=== PATIENT | female | born 1985 | race Caucasian/White ===

== ENCOUNTER 2018-04-18 18:05 | Outpatient (CLI) | payer OTHER ==
[2018-04-18 18:51] VITALS: BP 99/57
== END 2018-04-18 19:00 | disposition home or self-care (01) ==
LOC: TRG 18:05
PROVIDERS: ATTEND Obstetrics & Gynecology
DX: O47.1 False labor at or after 37 completed weeks of gestation (principal); Z3A.38 38 weeks gestation of pregnancy
CPT/HCPCS: 59025

== ENCOUNTER 2018-04-26 15:32 | Inpatient (IN) | payer OTHER ==
[2018-04-26] MEDS ORDERED: SUBLIMAZE IV ONE (17:00)
[2018-04-26] MEDS ORDERED: LACTATED RINGERS 1,000 ML IV SCH ×2 (17:00→19:00)
[2018-04-26 17:20] LABS: Hemoglobin 12.1 gm/dl (10.1-14.3); Mean Corpuscular HGB Conc 33 % (30-34); Mean Corpuscular Hemoglobin 27 pg (28-32); Mean Corpuscular Volume 82 fl (79-97); Platelet Count 222 K/mm3 (140-440); Red Blood Count 4.52 M/mm3 (3.65-5.03); Red Cell Distribution Width 19.2 % (13.2-15.2)
[2018-04-26] MEDS ORDERED: PITOCin/NS 20 UNIT/1000ML DRIP 20 UNITS/1,000 ML BAG IV SCH ×2 (18:00→19:00)
[2018-04-26] MEDS ORDERED: XYLOCAINE 2% INFILTRATI ONE (18:29)
[2018-04-26] MEDS ORDERED: BRETHINE SUB-Q PRN (18:29)
[2018-04-26] MEDS ORDERED: ePHEDrine SULFATE IV PRN (18:29)
--- NOTE | 2018-04-26 18:37 | History and Physical Report ---
History of Present Illness Date of examination: 04/26/18 Date of admission: 04/26/18 16:15 Chief complaint: Contractions since 06:00 this morning. History of present illness: 32 year old presents in active labor. Patient states her contractions started this morning at 06:00. Patient denies vaginal bleeding or leaking of fluid. Patient received care at [facility]. Patient brings records with her. Patient reports an uncomplicated . labs are as follows: O+, antibody screen negative, rubella immune, pap smear normal, RPR nonreactive, hepatitis B surface antigen negative, HIV negative, chlamydia negative, gonorrhea negative, quad screen negative, diabetes screen 102, GBS negative. Past History Past Medical History: other (overweight) Past Surgical History: appendectomy [employer] History: denies: abnormal PAP smear, chlamydia, gonorrhea, hepatitis B, hepatitis C, herpes, HIV, syphilis Family/Genetic History: none Social history: , lives with family, full code. denies: smoking, alcohol abuse, prescription drug abuse, IV drug use - Obstetrical History Expected Date of Delivery: 04/27/18 Actual Gestation: 39 Week(s) 6 Day(s) : 2 Para: 1 Hx # Term Pregnancies: 2 Number of Pregnancies: 0 Spontaneous Abortions: 0 Induced : 0 Number of Living Children: 1 Medications and Allergies Allergies Allergy/AdvReac Type Severity Reaction Status Date / Time No Known Allergies Allergy Verified 04/26/18 16:48 Home Medications Medication Instructions Recorded Confirmed Last Taken Type Vit-Fe Fumar-FA [ 1 tab PO QDAY 04/26/18 04/26/18 04/26/18 09: 00 History Vitamin] 1 Active Meds: Active Medications Ephedrine Sulfate (Ephedrine Sulfate) 10 mg IV Q2M PRN PRN Reason: Hypotension Lactated Ringer's (Lactated Ringers) 1,000 mls @ 125 mls/hr IV DIRECT VICKIE Last Admin: 04/26/18 17:15 Dose: 125 mls/hr Oxytocin/Sodium Chloride (Pitocin/Ns 20 Unit/1000ml Drip) 20 units in 1,000 mls @ 0 mls/hr IV DIRECT VICKIE Lactated Ringer's (Lactated Ringers) 1,000 mls @ 125 mls/hr IV DIRECT VICKIE Lidocaine (Xylocaine 2%) 20 ml INFILTRATI ONCE ONE Stop: 04/26/18 18:30 Review of Systems All systems: negative (contractions) - Vital Signs Vital signs: Vital Signs Temp Pulse Resp 98.1 F 87 20 04/26/18 16:15 04/26/18 16:15 04/26/18 16:15 Temp Pulse Resp BP Pulse Ox 98.1 F 87 20 112/74 04/26/18 16:15 04/26/18 16:33 04/26/18 16:15 04/26/18 16:33 - Physical Exam Cardiovascular: Regular rate, Normal S1, Normal S2 Lungs: Positive: Clear to auscultation Abdomen: Positive: normal appearance, soft. Negative: distention, tenderness, guarding, rigidity Genitourinary (Female): Positive: normal external genitalia. Negative: perineal /vulvar lesions (no lesions seen on careful exam with bright light) Vagina: Positive: normal moisture Uterus: Positive: enlarged (size=dates) Extremities: Positive: normal. Negative: tenderness, edema - Obstetrical FHR: category 2 Uterine Contraction Monitor Mode: External Cervical Dilatation: 9 Cervical Effacement Percentage: 100 station: -1 Uterine Contraction Pattern: Regular Uterine Contraction Intensity: Moderate Results Result Diagrams: 04/26/18 16:00 Abnormal lab results 04/26/18 Range/Units 16:00 MCH 27 L (28-32) pg RDW 19.2 H (13.2-15.2) % All other labs normal. Assessment and Plan A: at 39 weeks, 6 days gestation. Active labor. GBS negative. P: Admit. Anticipate .
--- NOTE | 2018-04-26 19:24 | Event Note ---
Date: 04/26/18 SROM large amount of thin meconium stained amniotic fluid at 19:12.
[2018-04-26] MEDS ORDERED: TUCKS PAD TP PRN (21:20)
[2018-04-26] MEDS ORDERED: TYLENOL PO PRN (21:20)
[2018-04-26] MEDS ORDERED: LANSINOH TP PRN (21:20)
--- NOTE | 2018-04-26 21:26 | Procedure Note ---
OB Delivery Note - Delivery Date of Delivery: 04/26/18 Surgeon: JACQUELIN VICKERS Estimated blood loss: 200cc - Vaginal Delivery presentation: vertex Delivery position: OA Intrapartum events: meconium Delivery induction: none Delivery monitor: external FHT, external uterine Route of delivery: Delivery placenta: spontaneous Delivery cord: 3 umbilical vessels Episiotomy: none Delivery laceration: none Anesthesia: none Delivery comments: of liveborn female weighing 8 lb. 13 oz. over intact perineum with apgars of 8/9. NICU present for delivery due to thin meconium stained amniotic fluid. 3 vessel cord double clamped and cut and baby taken to radiant warmer after for suctioning. Baby returned promptly to mom for skin to skin. Spontaneous delivery of intact placenta and membranes by fermin mechanism. EBL 200 cc. Pitocin to IV fluids after delivery of placenta. Fundus firm and midline. Perineum intact. No lacerations noted on careful inspection. Vaginal sweep negative. Sponge count correct. Mother and baby stable.
[2018-04-26] MEDS ORDERED: SODIUM CHLORIDE FLUSH SYRINGE 10 ML IV NR (22:00)
[2018-04-26] MEDS ORDERED: MILK OF MAGNESIA PO PRN (23:00)
[2018-04-26] MEDS ORDERED: DULCOLAX PR PRN (23:00)
[2018-04-26] MEDS: MOTRIN PO SCH (23:41)
[2018-04-27] MEDS ORDERED: NORCO 5/325 PO PRN ×2 (00:53→00:56)
[2018-04-27] MEDS: MOTRIN PO SCH ×2 (06:39→23:39)
[2018-04-27 09:15] LABS: Hematocrit 31.6 % (30.3-42.9); Hemoglobin 10.4 gm/dl (10.1-14.3)
--- NOTE | 2018-04-27 10:36 | Progress Note ---
Assessment and Plan A: day 1 S/P . Anemia. Bottlefeeding/. P: Encouraged ambulation. Supplement with iron. Anticipate discharge tomorrow. Subjective - Subjective Date of service: 04/27/18 Principal diagnosis: day 1 S/P Interval history: day 1 S/P liveborn female . and bottlefeeding. Doing well. Voiding without difficulty. Ambulating well. Tolerating a regular diet without nausea or vomiting. Reports moderate lochia. Patient denies headache, visual disturbance, nausea or vomiting, cough, shortness of breath, chest pain, abdominal pain, leg pain, heavy bleeding, or symptoms of depression. Patient reports: appetite normal, voiding normally, pain well controlled, flatus , ambulating normally [place]: doing well Objective - Vital Signs Latest vital signs: Vital Signs Temp Pulse Resp BP BP Pulse Ox 04/27/18 08:33 98.6 F 77 18 98/50 96 04/27/18 06:05 98.5 F 81 18 95/54 04/27/18 01:30 98.7 F 84 18 91/57 04/26/18 21:53 99.3 F 79 20 105/69 04/26/18 21:22 74 106/59 04/26/18 21:20 97.1 F L 04/26/18 21:02 82 102/55 04/26/18 20:42 87 100/58 04/26/18 20:22 87 110/62 04/26/18 20:10 96.5 F L 04/26/18 16:33 87 112/74 04/26/18 16:18 90 118/65 04/26/18 16:15 98.1 F 87 20 Intake and Output 04/26/18 04/27/18 04/27/18 23:59 07:59 15:59 Intake Total 240 240 Output Total 400 350 400 Balance -400 -110 -160 Intake: Oral 120 Intake, Free Water 240 120 Output: Urine 400 350 400 Void 400 350 400 Other: Total, Intake Amount 120 Total, Output Amount 400 350 400 # Voids Void 1 Weight 85.729 kg Estimated Blood Loss 200 - Exam Cardiovascular: Present: Regular rate, Normal S1, Normal S2 Lungs: Present: Clear to auscultation Abdomen: Present: normal appearance, soft, normal bowel sounds. Absent: distention, tenderness, guarding, rigidity Uterus: Present: normal, firm, fundal height below umbilicus. Absent: bogginess , tenderness Extremities: Present: normal. Absent: tenderness, edema - Labs Labs: Abnormal lab results 04/26/18 Range/Units 16:00 MCH 27 L (28-32) pg RDW 19.2 H (13.2-15.2) %
[2018-04-27] MEDS: FEOSOL PO SCH (23:39)
[2018-04-28] MEDS: MOTRIN PO SCH ×3 (05:45→18:28)
[2018-04-28] MEDS ORDERED: BOOSTRIX IM ONE (06:00)
--- NOTE | 2018-04-28 17:40 | Progress Note ---
Assessment and Plan A: day 2. Anemia. P: Discharge patient home today. Discussed discharge instructions and warning signs with patient. Advised pt. to continue to take her vitamins and iron supplements at home. Advised pt. to avoid IC, avoid heavy lifting and housework. Advised pt. to follow up in [facility] in 6 weeks. Subjective - Subjective Date of service: 04/28/18 Principal diagnosis: day 2 S/P Interval history: day 2 S/P liveborn female . and bottlefeeding. Desires discharge today. Doing well. Voiding without difficulty. Ambulating well. Tolerating a regular diet without nausea or vomiting. Reports moderate lochia. Patient denies headache, visual disturbance, nausea or vomiting, cough, shortness of breath, chest pain, abdominal pain, leg pain, heavy bleeding, or symptoms of depression. Patient states she does not desire control. Patient reports: appetite normal, voiding normally, pain well controlled, flatus , ambulating normally : doing well Objective - Vital Signs Latest vital signs: Vital Signs Temp Pulse Resp BP Pulse Ox 04/28/18 09:09 98.3 F 75 18 99/59 98 04/27/18 23:32 99 F 75 20 106/57 Intake and Output 04/28/18 04/28/18 04/28/18 07:59 15:59 23:59 Intake Total 240 1200 Balance 240 1200 Intake: Oral 120 Intake, Free Water 240 1080 Other: Total, Intake Amount 120 # Voids Void 2 1 - Exam Cardiovascular: Present: Regular rate, Normal S1, Normal S2 Lungs: Present: Clear to auscultation Abdomen: Present: normal appearance, soft. Absent: distention, tenderness, guarding, rigidity Uterus: Present: normal, firm, fundal height below umbilicus. Absent: bogginess , tenderness Extremities: Present: normal. Absent: tenderness, edema
--- NOTE | 2018-04-28 17:44 | Discharge Summary ---
Providers - Providers Date of Admission: 04/26/18 16:15 Date of discharge: 04/28/18 Attending physician: Dillan Bridges None Primary care physician: Dillan Bridges Hospitalization Reason for admission: active labor Delivery: Episiotomy: none Laceration: none Other procedures: none complications: none Discharge diagnosis: IUP at term delivered baby: female Pertinent studies: Labs Hospital course: Normal hospital course Condition at discharge: Good Disposition: DC-01 TO HOME OR SELFCARE - Discharge Diagnoses (1) Term delivered Status: Acute Plan - Provider Discharge Summary Activity: routine, no sex for 6 weeks, no heavy lifting 4 weeks, no strenuous exercise Diet: routine Instructions: routine Additional instructions: Call your doctor immediately for: * Fever > 100.5 * Heavy vaginal bleeding ( >1 pad per hour) * Severe persistent headache * Shortness of breath * Reddened, hot, painful area to leg or breast - Follow up plan Follow up: DILLAN BRIDGES MD [Staff Physician] - 6 Weeks
[2018-04-28] MEDS: FEOSOL PO SCH (18:27)
[2018-04-28] MEDS ORDERED: FEOSOL PO ONE (18:34)
[2018-04-28] MEDS ORDERED: MOTRIN PO ONE (18:35)
[2018-04-28 18:39] VITALS: BP 109/77
== END 2018-04-28 18:33 | disposition home or self-care (01) | DRG 775 ==
LOC: TRG 15:32 → LD 16:15 → TRG 16:15 → OB 21:49
PROVIDERS: ADMIT Obstetrics & Gynecology Gynecology; ATTEND Obstetrics & Gynecology Gynecology
PROC: 10E0XZZ Delivery of Products of Conception, External Approach (ICD-10-PCS; principal; 2018-04-26)
DX: O77.0 Labor and delivery complicated by meconium in amniotic fluid (principal); Z37.0 Single live birth; D64.9 Anemia, unspecified; O99.02 Anemia complicating childbirth; Z3A.39 39 weeks gestation of pregnancy; Z90.49 Acquired absence of other specified parts of digestive tract
CPT/HCPCS: 36415; 59025; 85014; 85018; 85027; 86592; 86850; 86900; 86901; 90471; 90715; J2590; J3010; J7120